=== PATIENT | female | born 2005 | race Caucasian/White ===

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

== ENCOUNTER → 2023-07-23 13:05 | Outpatient (BNVA) | payer MEDICAID, SELFPAY | PROVIDERS: PCP Nurse Practitioner Family; Visit Provider Nurse Practitioner Family | DX: J02.9 Acute pharyngitis, unspecified (principal) | CPT/HCPCS: 87880 ==

== ENCOUNTER → 2024-07-28 15:57 | Outpatient (BNVA) | payer MEDICAID, SELFPAY | PROVIDERS: PCP Nurse Practitioner Family; Visit Provider Nurse Practitioner Family | DX: N64.3 Galactorrhea not associated with childbirth (principal) | CPT/HCPCS: 80053; 84146; 84443; 85025 ==

== ENCOUNTER → 2024-08-10 09:47 | Outpatient (BNVA) | payer MEDICAID, SELFPAY | PROVIDERS: PCP Nurse Practitioner Family; Visit Provider Nurse Practitioner Family | DX: N39.0 Urinary tract infection, site not specified (principal); R30.0 Dysuria | CPT/HCPCS: 81003; 87086 ==

== ENCOUNTER 2024-08-18 09:00 | Outpatient (CLI) | payer MEDICAID, SELFPAY ==
--- NOTE | 2024-08-18 09:30 | MR_ITS ---
WS: [id number] MRI BRAIN WITHOUT AND WITH CONTRAST, ATTENTION DIRECTED TO THE PITUITARY GLAND HISTORY: R79.89 - Other specified abnormal findings of blood chemistry. COMPARISON: None available. TECHNIQUE: Diffusion-weighted imaging, axial T2 sequence, and postcontrast images in 3 planes are performed. High-resolution coronal and sagittal imaging performed through the pituitary region with and without intravenous gadolinium. On the postcontrast imaging through the pituitary gland there is a nonenhancing 2.6 x 2.8 mm mass in the posterior LEFT pituitary gland most consistent with a microadenoma. There is no deviation of the infundibulum or elevation of the optic chiasm. The remaining brain is negative. No prior or acute infarcts. No hemorrhage. No volume loss or prior microvascular disease. No enhancing masses or vascular malformation. Ventricles and basilar cisterns are normal. Paranasal sinuses and mastoid air cells are clear. No mass at the cerebellopontine angle. Calvarium unremarkable. MR/MR pituitary wo/w con* [id number] IMPRESSION: 1. Nonenhancing nodule in the LEFT posterior pituitary measures 2.6 x 2.8 mm c onsistent with a microadenoma. 2. Remaining MRI brain is negative.
[2024-08-18] MEDS: gadobenate dimeglumine 20 mL vial IV (10:06)
== END 2024-08-18 09:01 | disposition home or self-care (01) ==
LOC: RAD 09:02
PROVIDERS: PCP Nurse Practitioner Family; Visit Provider Nurse Practitioner Family
DX: R79.89 Other specified abnormal findings of blood chemistry (principal); R93.0 Abnormal findings on diagnostic imaging of skull and head, not elsewhere classified
CPT/HCPCS: 70553

== ENCOUNTER → 2024-08-24 11:21 | Outpatient (BNVA) | payer MEDICAID, SELFPAY | PROVIDERS: PCP Nurse Practitioner Family; Visit Provider Nurse Practitioner Family | DX: N89.8 Other specified noninflammatory disorders of vagina (principal) | CPT/HCPCS: 81000 ==

== ENCOUNTER → 2024-08-27 10:17 | Outpatient (BNVA) | payer MEDICAID, SELFPAY | PROVIDERS: PCP Nurse Practitioner Family; Referring Provider Nurse Practitioner Family; Visit Provider Internal Medicine | DX: E23.7 Disorder of pituitary gland, unspecified (principal) | CPT/HCPCS: 36415; 82533; 84146; 84305; 84439; 84443 ==

== ENCOUNTER → 2024-10-25 08:16 | Outpatient (BNVA) | payer MEDICAID, SELFPAY | PROVIDERS: PCP Nurse Practitioner Family; Visit Provider Nurse Practitioner Family | DX: N89.8 Other specified noninflammatory disorders of vagina (principal); B37.31 Acute candidiasis of vulva and vagina; D35.2 Benign neoplasm of pituitary gland | CPT/HCPCS: 82533; 84146; 84305 ==

== ENCOUNTER 2024-11-17 07:57 | Oncology outpatient (recurring) (ONCR) | payer MEDICAID, SELFPAY ==
[2024-11-17 08:40] VITALS: BP 106/75; PULSE 86; RESP 16; TEMP 36.6; O2SAT 99
[2024-11-17] MEDS: cosyntropin 0.25 mg SDV IVP (09:04)
[2024-11-17 09:25] LABS: Cosyntropin Baseline 12.88 mcg/dL
[2024-11-17 10:40] LABS: Cosyntropin 30 Minute 20.86 mcg/dL
[2024-11-17 12:45] LABS: Cosyntropin 1 Hour 23.14 mcg/dL
[2024-11-17 13:21] VITALS: BP 120/66; PULSE 68; RESP 16; O2SAT 99
== END 2024-12-14 23:59 | disposition home or self-care (01) ==
PROVIDERS: Internal Medicine; PCP Nurse Practitioner Family; Visit Provider Internal Medicine
DX: N92.0 Excessive and frequent menstruation with regular cycle (principal); N64.52 Nipple discharge; Z79.899 Other long term (current) drug therapy
CPT/HCPCS: 82533; 96374; J0834

== ENCOUNTER → 2024-12-10 13:34 | Outpatient (BNVA) | payer MEDICAID, SELFPAY | PROVIDERS: PCP Nurse Practitioner Family; Visit Provider Registered Nurse Neonatal Intensive Care | DX: R30.0 Dysuria (principal) | CPT/HCPCS: 81000 ==

== ENCOUNTER → 2025-01-17 14:08 | Outpatient (BNVA) | payer MEDICAID, SELFPAY | PROVIDERS: PCP Nurse Practitioner Family; Visit Provider Nurse Practitioner Family | DX: N89.8 Other specified noninflammatory disorders of vagina (principal) | CPT/HCPCS: 81000 ==